=== PATIENT | female | born 1980 | race Two or more races ===

== ENCOUNTER 2021-06-16 11:00 | Emergency (ER) | payer SELFPAY ==
[~2021-06-16] VITALS: Ht 154.9 cm; Wt 72.6 kg
[2021-06-16] MEDS ORDERED: ACETAMINOPHEN ES 500 MG TABLET PO ONE (11:15)
[2021-06-16] MEDS ORDERED: ACETAMINOPHEN ES 500 MG TABLET ONE (11:33)
[2021-06-16 11:57] LABS: *URINE HCG, QUAL NEG (NEGATIVE)
[2021-06-16] MEDS ORDERED: ACET-73 PO (14:02)
[2021-06-16] MEDS ORDERED: IBUP-1957 PO (14:02)
--- NOTE | 2021-06-16 14:07 | NUR ---
PT WAS EVALUATED BY DR RUSH. PT WAS D/C'd TO [facility] D/C INSTRUCTIONS GIVEN TO THE PT BY DR RUSH.
[2021-06-16 14:09] VITALS: BP 139/77
== END 2021-06-16 14:09 | disposition home or self-care (01) ==
LOC: ER 11:00
DX: S16.1XXA Strain of muscle, fascia and tendon at neck level, initial encounter (principal); S09.90XA Unspecified injury of head, initial encounter; S39.012A Strain of muscle, fascia and tendon of lower back, initial encounter; W01.0XXA Fall on same level from slipping, tripping and stumbling without subsequent striking against object, initial encounter; Y92.512 Supermarket, store or market as the place of occurrence of the external cause; M51.36 Other intervertebral disc degeneration, lumbar region; M48.061 Spinal stenosis, lumbar region without neurogenic claudication; K80.20 Calculus of gallbladder without cholecystitis without obstruction
CPT/HCPCS: 70450; 72125; 72131; 72170; 73030; 73502; 84703; A4663; A9150